=== PATIENT | female | born 1965 ===

== ENCOUNTER 2020-05-31 09:03 | Inpatient (IN) | payer OTHER ==
[2020-05-27 17:38] VITALS: BMI 25.4
[2020-05-31] MEDS ORDERED: LIDOCAINE HCL/PF 2% SDV 5ML VIAL ONE (13:57)
[2020-05-31] MEDS ORDERED: fentaNYL CITRATE 250 MCG/5 ML VIAL ONE ×5 (13:57→18:43)
[2020-05-31] MEDS ORDERED: PROPOFOL 20 ML ONE ×15 (13:58→18:15)
[2020-05-31] MEDS ORDERED: SUCCINYLCHOLINE CHLORIDE 200 MG/10 ML SYRINGE ONE (13:58)
[2020-05-31] MEDS ORDERED: MIDAZOLAM HCL 2 MG/2 ML SINGLE DOSE VIAL ONE ×3 (13:58→15:27)
[2020-05-31] MEDS ORDERED: ceFAZolin SODIUM 1 GM VIAL ONE ×2 (14:00→21:43)
[2020-05-31] MEDS ORDERED: SODIUM CHLORIDE 0.9% P/F 10 ML VIAL IJ ONE (14:00)
[2020-05-31] MEDS ORDERED: DEXAMETHASONE SOD PHOSPHATE 4 MG/1 ML VIAL ONE (14:06)
[2020-05-31] MEDS ORDERED: THROMBIN (BOVINE) 5,000 UNIT VIAL TP ONE (15:21)
[2020-05-31] MEDS ORDERED: BENZOIN/ALOE VERA/STORAX/TOLU 58 ML BOTTLE ONE (15:21)
[2020-05-31] MEDS ORDERED: HEPARIN NA (PORCINE) 5,000 UNITS/ML 1ML VIAL ONE (15:21)
[2020-05-31] MEDS ORDERED: ceFAZolin SODIUM 1 GM VIAL IVPB ONE (16:16)
[2020-05-31] MEDS ORDERED: TRANEXAMIC ACID 1000 MG/10 ML VIAL IVPB ONE (16:16)
[2020-05-31] MEDS ORDERED: VANCOMYCIN 1,000 MG VIAL (RESTRICTED TO ID ONLY) IVPB ONE (16:16)
[2020-05-31] MEDS ORDERED: KETOROLAC TROMETHAMINE 30 MG/1 ML VIAL ONE (16:30)
[2020-05-31] MEDS ORDERED: TRANEXAMIC ACID 1000 MG/10 ML VIAL ONE ×2 (16:31→17:27)
[2020-05-31] MEDS ORDERED: LABETALOL HCL 5 MG/1 ML (100MG/20 ML VIAL) ONE ×3 (17:30→17:33)
--- NOTE | 2020-05-31 19:58 | PN ---
Progress Note (short form) - Note Progress Note: 55F s/p C4-C5, C5-C6 anterior cervical discectomies and instrumented fusion POD #0. -Airway observation: In case of emergency, remove anterior cervical spine dressing, trim single end loop, and pull out running suture; ok to cut suture if needed to decompress hematoma. -Maintain head of bed 30-45 degrees. -Pain medication: per anaesthesia team; oral meds (oxycodone preferred), no CODING TECH; NO NSAID's. -DVT PPx: -Mechanical only: JOSE's, SCD's. -Post-op Ancef x 3 doses. -f/u AM labs. -Incentive spirometry. -PT/OT/Rehab, OOB. -WBAT B/L LE. -PWB B/L UE: 5lbs. -d/c Le catheter in PACU; f/u TOV (8 hours max). -Keep dressing clean & dry. -No heavy lifting (>5 lbs), bending or twisting x 6 months post op. -Start with soft diet; advance diet as tolerated. -B/L UE & LE NV checks. -f/u post-op x-rays tomorrow. -Care per ICU & primary medical hospitalist. -Discharge planning: f/u [facility] [place] office 7-10 days after discharge; call for appointment; . Harvinder Lee MD (Orthopaedic Surgery).
[2020-05-31] MEDS ORDERED: ZOLPIDEM TARTRATE 5 MG TABLET PO PRN (20:02)
--- NOTE | 2020-05-31 20:02 | OP ---
Operative Note - Note: Operative Date: 05/31/20 Pre-Operative Diagnosis: C4-C5, C5-C6 disc prolapses with myeloradiculopathy Operation: C4-C5, C5-C6 ACDF Implants: Cages: RTI Tetrafuse 9mm. Precision Spine Slimplicity Plate: 32mm. 6 x 4x12mm scews Post-Operative Diagnosis: Same as Pre-op Surgeon: Harvinder Lee Forcer Maker: Raymundo Lee Anesthesiologist/STEWARD/STEWARDESS BATH: Jayme Pereira Anesthesia: General Specimens Removed: C4-C5, C5-C6 discs Estimated Blood Loss (mls): 160 Blood Volume Replaced (mls): 70 (Cell saver) Fluid Volume Replaced (mls): 2,000 (Crystalloid) Operative Report Dictated: Yes
[2020-05-31] MEDS ORDERED: ONDANSETRON 4 MG/2 ML VIAL IVPUSH PRN ×2 (20:03→20:22)
[2020-05-31] MEDS ORDERED: oxyCODONE HCL 5 MG TABLET PO PRN (20:03)
[2020-05-31] MEDS ORDERED: LACTATED RINGERS SOLUTION 1,000 ML IV SCH (20:15)
[2020-05-31] MEDS ORDERED: PROMETHAZINE HCL 25 MG/1 ML VIAL IVPUSH PRN (20:22)
[2020-05-31] MEDS ORDERED: HYDROmorphone *PCA* 10MG/50ML DISP.SYRIN PCA SCH (20:30)
[2020-05-31] MEDS ORDERED: HYDROmorphone *PCA* 10MG/50ML DISP.SYRIN ONE (20:54)
[2020-05-31] MEDS: CEFAZOLIN 1 GM in DEXTROSE 5%-WATER - 50 ML IVPB SCH (22:00)
--- NOTE | 2020-05-31 23:37 | CONSULT ---
Consultation: REQUESTING PROVIDER: CONSULT REQUEST: We have been asked to medically evaluate this patient for stability s/p ACDF of C4-C5, C5-C6. HISTORY OF PRESENT ILLNESS: 55 yo F w/ PMHx of chronic neck pain for 3-4 years, intermittent in intensity, with radiation down towards her fingertips. Sensation described as "pulling" and "tingling." Pain was made worse by using the computer and working as a secondary school special ed teacher. Alleviated w/ lidocaine patch. Ptn underwent a scheduled, elective, C4-C5, C5-C6 ACDF, by Dr. Lee, and is currently POD #0. PSH: Tonsillectomy & T-Tubes - 1996 Cholecystectomy - 1991 Breast Augmentation & Abdominoplasty - 2016 SH - Lives with & 2 sons Works as a secondary school special ed teacher FH - Mother - Diabetes Sister - Diabetes Alergies - Tramadol: Causes itchyness Home Meds: Motrin 800mg Tylenol w/ Codeine Ambien REVIEW OF SYSTEMS: CONSTITUTIONAL: Absent: fever, chills, diaphoresis, generalized weakness, malaise, loss of appetite, weight change HEENT: Absent: rhinorrhea, nasal congestion, throat pain, throat swelling, difficulty swallowing, mouth swelling, ear pain, eye pain, visual changes CARDIOVASCULAR: Absent: chest pain, syncope, palpitations, irregular heart rate, lightheadedness, peripheral edema RESPIRATORY: Absent: cough, shortness of breath, dyspnea with exertion, orthopnea, wheezing, stridor, hemoptysis GASTROINTESTINAL: Absent: abdominal pain, abdominal distension, nausea, vomiting, diarrhea, constipation, melena, hematochezia GENITOURINARY: Absent: dysuria, frequency, urgency, hesitancy, hematuria, flank pain, genital pain MUSCULOSKELETAL: Absent: myalgia, arthralgia, joint swelling, back pain, neck pain SKIN: Absent: rash, itching, pallor NEUROLOGIC: Absent: headache, focal weakness or paresthesias, dizziness, unsteady gait, seizure, mental status changes, bladder or bowel incontinence PSYCHIATRIC: Absent: anxiety, depression, suicidal or homicidal ideation, hallucinations. PHYSICAL EXAMINATION Vital Signs - 24 hr 05/31/20 05/31/20 05/31/20 09:33 09:35 20:23 Temperature 97.5 F L 98.9 F Pulse Rate 68 88 Respiratory 20 16 Rate Blood Pressure 149/95 145/93 O2 Sat by Pulse 98 98 96 Oximetry (%) GENERAL: Awake, alert, and fully oriented, in no acute distress. HEAD: Normal with no signs of trauma. EYES: Pupils equal, round and reactive to light, extraocular movements intact, sclera anicteric, conjunctiva clear. No lid lag. EARS, NOSE, THROAT: Ears normal, nares patent, oropharynx clear without exudates. Moist mucous membranes. NECK: Cervical collar in place. LUNGS: Breath sounds equal, clear to auscultation bilaterally. No wheezes, and no crackles. No accessory muscle use. HEART: Regular rate and rhythm, normal S1 and S2 without murmur, rub or gallop. ABDOMEN: Soft, nontender, not distended, normoactive bowel sounds, no guarding, no rebound, no masses. MUSCULOSKELETAL: Normal range of motion at all joints. No bony deformities or tenderness. UPPER EXTREMITIES: 2+ pulses, warm, well-perfused. No cyanosis. No clubbing. No peripheral edema. LOWER EXTREMITIES: 2+ pulses, warm, well-perfused. No calf tenderness. No peripheral edema. NEUROLOGICAL: CN II, III, IV, V, , VII, VIII, IX, XII intact. X and XI not tested. Normal speech. PSYCHIATRIC: Cooperative. Good eye contact. Appropriate mood and affect. SKIN: Warm, dry, normal turgor, no rashes or lesions noted. Laboratory Results - last 24 hr 05/31/20 09:16 Blood Type A POSITIVE Antibody Screen Negative Active Medications Fentanyl (Sublimaze Injection -) 50 mcg IVPUSH [id number] PRN PRN Reason: PAIN-PACU ORDER X 4 DOSES ONLY Hydromorphone HCl (Hydromorphone 10 Mg/50 Ml-Ns) 10 mg AUTOMAT WATCHER AUTOMAT WATCHER RYAN; Protocol Stop: 06/01/20 20:29 Last Admin: 05/31/20 20:50 Dose: 10 mg Documented by: Lactated Ringer's (Lactated Ringers Solution) 1,000 mls @ 125 mls/hr IV ASDIR RYAN Last Admin: 05/31/20 21:11 Dose: 125 mls/hr Documented by: Cefazolin Sodium 1 gm/ (Dextrose) 50 mls @ 100 mls/hr IVPB Q6H [facility] Stop: 06/01/20 21:59 Last Admin: 05/31/20 22:00 Dose: 100 mls/hr Documented by: Ondansetron HCl (Zofran Injection) 4 mg IVPUSH Q6H PRN PRN Reason: NAUSEA AND/OR VOMITING Ondansetron HCl (Zofran Injection) 4 mg IVPUSH Q6H PRN PRN Reason: NAUSEA AND/OR VOMITING Oxycodone HCl (Roxicodone -) 5 mg PO Q4H PRN PRN Reason: PAIN LEVEL 1-5 Oxycodone HCl (Roxicodone -) 10 mg PO Q4H PRN PRN Reason: PAIN LEVEL 6-10 Promethazine HCl (Phenergan Injection -) 12.5 mg IVPUSH Q6H PRN PRN Reason: NAUSEA-FOR RESCUE AFTER 15 MIN Zolpidem Tartrate (Ambien -) 5 mg PO HS PRN PRN Reason: INSOMNIA ASSESSMENT/PLAN: 55F s/p C4-C5, C5-C6 anterior cervical discectomies and instrumented fusion POD #0. NEURO -AAOx3 -Monitor for parasthesias CARDIO -Currently Stable -Monitor HR and BP for any sign of neurologic compromise PULM -Monitor airway - In case of emergency, remove anterior cervical spine dressing, trim single end loop, and pull out running suture; ok to cut suture if needed to decompress hematoma. -Follow O2 Sats, supplemental O2 if needed to maintain above 92% -Incentive Spirometry GI -GI PPx ordered, administer if needed MSK -PT/OT/Rehab, OOB. -Ptn ambulation as per Surgery -FU post op XR tomorrow -f/u [facility] [place] office 7-10 days after discharge; call for appointment; INFECTIOUS -Post Op Ancef x3 -Morning labs ordered -Monitor for signs of fever FEN -Soft Diet, advance as tolerated -Morning labs ordered DVT PPx -SCDs in place Dispo: We will continue to follow the patient. Thank you for this consultative opportunity. Visit type - Emergency Visit Emergency Visit: No - New Patient This patient is new to me today: Yes Date on this admission: 06/01/20 - Critical Care Critical Care patient: Yes Total Critical Care Time (in minutes): 36 Critical Care Statement: The care of this patient involved high complexity decision making to prevent further life threatening deterioration of the patient's condition and/or to evaluate & treat vital organ system(s) failure or risk of failure. ATTENDING PHYSICIAN STATEMENT I saw and evaluated the patient. I reviewed the resident's note and discussed the case with the resident. I agree with the resident's findings and plan as documented. SUBJECTIVE: OBJECTIVE: ASSESSMENT AND PLAN:
[2020-06-01 06:05] LABS: BASO % 0.1 % (0-2.0); HEMATOCRIT 38.8 % (32.4-45.2); LYMPH % 4.2 % (8-40); MCHC 33.4 g/dl (32.0-36.0); MEAN CELL VOLUME 89.8 fl (80-96); MEAN PLT VOLUME 9.3 fl (7.5-11.1); MONO % 0.9 % (3.8-10.2); NEUT % 94.8 % (42.8-82.8); PLATELET COUNT 192 K/MM3 (134-434); RBC 4.32 M/mm3 (3.60-5.2); RDW 12.8 % (11.6-15.6); WHITE BLOOD COUNT 12.3 K/mm3 (4.0-10.0)
[2020-06-01 06:29] LABS: ALBUMIN 3.5 g/dl (3.4-5.0); BILIRUBIN,TOTAL 0.4 mg/dL (0.2-1); BLOOD UREA NITROGEN 8.1 mg/dL (7-18); CREATININE 0.8 mg/dL (0.55-1.3); MAGNESIUM 2.2 mg/dL (1.8-2.4); PHOSPHOROUS 4.4 mg/dL (2.5-4.9); POTASSIUM 4.6 mmol/L (3.5-5.1); TOT PROT 6.5 g/dl (6.4-8.2)
[2020-06-01] MEDS ORDERED: DEXTROSE 5%-WATER - 50 ML IVPB ONE ×3 (06:53→13:41)
[2020-06-01] MEDS ORDERED: ceFAZolin SODIUM 1 GM VIAL ONE ×3 (06:53→13:41)
[2020-06-01] MEDS: CEFAZOLIN 1 GM in DEXTROSE 5%-WATER - 50 ML IVPB SCH ×3 (07:21→15:22)
[2020-06-01 07:37] LABS: INR 0.98 (0.83-1.09); PROTHROMBIN TIME (PATIENT) 11.6 SEC (9.7-13.0)
--- NOTE | 2020-06-01 09:54 | PN ---
Progress Note (short form) - Note Progress Note: Anesthesia Post op/pain Pt seen and examined S:Alert and awake, comfortable O: Vital Signs Temperature 97.5 F L 06/01/20 07:59 Pulse Rate 74 06/01/20 09:30 Respiratory Rate 16 06/01/20 09:30 Blood Pressure 142/79 06/01/20 09:30 O2 Sat by Pulse Oximetry (%) 100 06/01/20 09:30 CBC, BMP 06/01/20 05:15 06/01/20 05:15 A/P s/p C4-5 C5-6 lanminectomy with fusion Doing well post op Continue current care Continue SENIOR PHYSICIAN Jayem Pereira M.D.
[2020-06-01 10:15] LABS: ANISOCYTOSIS 1+; MACROCYTOSIS 0; OVALOCYTE 1+; PLATELET ESTIMATE NORMAL; TEAR DROP CELLS 1+
[2020-06-01 11:03] VITALS: PULSE 68
[2020-06-01] MEDS ORDERED: PCA PUMP NR ONE (13:40)
[2020-06-01] MEDS: oxyCODONE HCL 5 MG TABLET PO PRN ×2 (13:47→15:36)
--- NOTE | 2020-06-01 14:03 | PN ---
Teaching Attending Note Name of Resident: Cassandra Cooper ATTENDING PHYSICIAN STATEMENT I saw and evaluated the patient. I reviewed the resident's note and discussed the case with the resident. I agree with the resident's findings and plan as documented. SUBJECTIVE: Patient seen and examined in the ICU. Awake and alert. Pain is better. No CP or SOB. Intake & Output 05/29/20 05/30/20 05/31/20 06/01/20 23:59 23:59 23:59 23:59 Intake Total 2375 Output Total 1000 Balance 1375 Last Vital Signs Temp Pulse Resp BP Pulse Ox 97.5 F L 68 18 153/78 100 06/01/20 07:59 06/01/20 11:00 06/01/20 11:00 06/01/20 11:00 06/01/20 10:27 Active Medications Fentanyl (Sublimaze Injection -) 50 mcg IVPUSH [id number] PRN PRN Reason: PAIN-PACU ORDER X 4 DOSES ONLY Hydromorphone HCl (Hydromorphone 10 Mg/50 Ml-Ns) 10 mg TELESALES SPECIALIST TELESALES SPECIALIST [facility]; Protocol Stop: 06/01/20 20:29 Last Admin: 05/31/20 20:50 Dose: 10 mg Documented by: Lactated Ringer's (Lactated Ringers Solution) 1,000 mls @ 125 mls/hr IV ASDIR [facility] Last Admin: 05/31/20 21:11 Dose: 125 mls/hr Documented by: Cefazolin Sodium 1 gm/ (Dextrose) 50 mls @ 100 mls/hr IVPB Q6H [facility] Stop: 06/01/20 21:59 Last Admin: 06/01/20 09:07 Dose: 100 mls/hr Documented by: Ondansetron HCl (Zofran Injection) 4 mg IVPUSH Q6H PRN PRN Reason: NAUSEA AND/OR VOMITING Ondansetron HCl (Zofran Injection) 4 mg IVPUSH Q6H PRN PRN Reason: NAUSEA AND/OR VOMITING Oxycodone HCl (Roxicodone -) 5 mg PO Q4H PRN PRN Reason: PAIN LEVEL 1-5 Last Admin: 06/01/20 13:47 Dose: 5 mg Documented by: Oxycodone HCl (Roxicodone -) 10 mg PO Q4H PRN PRN Reason: PAIN LEVEL 6-10 Promethazine HCl (Phenergan Injection -) 12.5 mg IVPUSH Q6H PRN PRN Reason: NAUSEA-FOR RESCUE AFTER 15 MIN Zolpidem Tartrate (Ambien -) 5 mg PO HS PRN PRN Reason: INSOMNIA GENERAL: Awake, alert, and fully oriented, in no acute distress. HEAD: Normal with no signs of trauma. EYES: Pupils equal, round and reactive to light, extraocular movements intact, sclera anicteric, conjunctiva clear. No lid lag. EARS, NOSE, THROAT: Ears normal, nares patent, oropharynx clear without exudates. Moist mucous membranes. NECK: Cervical collar in place. LUNGS: Breath sounds equal, clear to auscultation bilaterally. No wheezes, and no crackles. No accessory muscle use. HEART: Regular rate and rhythm, normal S1 and S2 without murmur, rub or gallop. ABDOMEN: Soft, nontender, not distended, normoactive bowel sounds, no guarding, no rebound, no masses. MUSCULOSKELETAL: Normal range of motion at all joints. No bony deformities or tenderness. UPPER EXTREMITIES: 2+ pulses, warm, well-perfused. No cyanosis. No clubbing. No peripheral edema. LOWER EXTREMITIES: 2+ pulses, warm, well-perfused. No calf tenderness. No peripheral edema. NEUROLOGICAL: Non-focal PSYCHIATRIC: Cooperative. Good eye contact. Appropriate mood and affect. SKIN: Warm, dry, normal turgor, no rashes or lesions noted. Laboratory Results - last 24 hr 06/01/20 06/01/20 06/01/20 05:15 05:15 05:15 WBC 12.3 H RBC 4.32 Hgb 13.0 Hct 38.8 MCV 89.8 MCH 30.0 MCHC 33.4 RDW 12.8 Plt Count 192 MPV 9.3 Absolute Neuts (auto) 11.7 H Neutrophils % 94.8 H Neutrophils % (Manual) 86.0 H Band Neutrophils % 4.0 Lymphocytes % 4.2 L Lymphocytes % (Manual) 9.0 Monocytes % 0.9 L Monocytes % (Manual) 0 L Eosinophils % 0.0 Eosinophils % (Manual) 0.0 Basophils % 0.1 Basophils % (Manual) 0.0 Myelocytes % (Man) 0 Promyelocytes % (Man) 0 Blast Cells % (Manual) 0 Nucleated RBC % 0 Metamyelocytes 0 Hypochromia 0 Platelet Estimate Normal Platelet Comment Present Polychromasia 1+ Poikilocytosis 1+ Anisocytosis 1+ Microcytosis 1+ Macrocytosis 0 Spherocytes 1+ Tear Drop Cells 1+ Ovalocytes 1+ PT with INR 11.60 INR 0.98 Sodium 142 Potassium 4.6 Chloride 107 Carbon Dioxide 25 Anion Gap 10 BUN 8.1 Creatinine 0.8 Est GFR (CKD-EPI)AfAm 97.55 Est GFR (CKD-EPI)NonAf 84.17 Random Glucose 144 H Calcium 9.0 Phosphorus 4.4 Magnesium 2.2 Total Bilirubin 0.4 AST 18 ALT 28 Alkaline Phosphatase 51 Total Protein 6.5 Albumin 3.5 ASSESSMENT/PLAN: POD #1 : S/P C4-C5, C5-C6 anterior cervical discectomies and instrumented fusion Pain control Incentive Spirometry Supplemental O2 as needed VTE prophylaxis PO as tolerated DC planning Dr Senior
[2020-06-01 14:12] VITALS: BP 146/72
--- NOTE | 2020-06-01 14:43 | DS ---
Physical Exam: SUBJECTIVE: Patient seen and examined at bedside. pts pain is controlled with HEALTH CARE RECRUITER pump. pt denies sob, denies CP, palpitations. denies dizziness OBJECTIVE: Vital Signs Period Temp Pulse Resp BP Sys/Kelley Pulse Ox Last 24 Hr 97.5 F-98.9 F 68-96 10-18 124-153/70-93 79-100 PHYSICAL EXAM GENERAL: The patient is awake, alert, and fully oriented, in no acute distress. HEAD: Normal with no signs of trauma. EYES: PERRL, extraocular movements intact, sclera anicteric, conjunctiva clear. ENT: Ears normal, nares patent, oropharynx clear without exudates, moist mucous membranes. NECK: pt wearing cervical collar LUNGS: Breath sounds equal, clear to auscultation bilaterally,no accessory muscle use. HEART: Regular rate and rhythm, S1, S2 without murmur ABDOMEN: Soft, nontender, nondistended, normoactive bowel sounds, no guarding, no rebound EXTREMITIES: 2+ pulses, warm, well-perfused, no edema. NEUROLOGICAL: Cranial nerves II through XII grossly intact. Normal speech PSYCH: Normal mood, normal affect. SKIN: Warm, dry, normal turgor, no rashes or lesions noted. LABS Laboratory Results - last 24 hr 06/01/20 06/01/20 06/01/20 05:15 05:15 05:15 WBC 12.3 H RBC 4.32 Hgb 13.0 Hct 38.8 MCV 89.8 MCH 30.0 MCHC 33.4 RDW 12.8 Plt Count 192 MPV 9.3 Absolute Neuts (auto) 11.7 H Neutrophils % 94.8 H Neutrophils % (Manual) 86.0 H Band Neutrophils % 4.0 Lymphocytes % 4.2 L Lymphocytes % (Manual) 9.0 Monocytes % 0.9 L Monocytes % (Manual) 0 L Eosinophils % 0.0 Eosinophils % (Manual) 0.0 Basophils % 0.1 Basophils % (Manual) 0.0 Myelocytes % (Man) 0 Promyelocytes % (Man) 0 Blast Cells % (Manual) 0 Nucleated RBC % 0 Metamyelocytes 0 Hypochromia 0 Platelet Estimate Normal Platelet Comment Present Polychromasia 1+ Poikilocytosis 1+ Anisocytosis 1+ Microcytosis 1+ Macrocytosis 0 Spherocytes 1+ Tear Drop Cells 1+ Ovalocytes 1+ PT with INR 11.60 INR 0.98 Sodium 142 Potassium 4.6 Chloride 107 Carbon Dioxide 25 Anion Gap 10 BUN 8.1 Creatinine 0.8 Est GFR (CKD-EPI)AfAm 97.55 Est GFR (CKD-EPI)NonAf 84.17 Random Glucose 144 H Calcium 9.0 Phosphorus 4.4 Magnesium 2.2 Total Bilirubin 0.4 AST 18 ALT 28 Alkaline Phosphatase 51 Total Protein 6.5 Albumin 3.5 HOSPITAL COURSE: Date of Admission:05/31/20 55 yo F PMH of chronic neck pain s/p C4-C5, C5-C6 anterior cervical discectomies and instrumented fusion POD #1. pt had no signs of airway or neurologic compromise. vitals remained stable. pt encouraged to use incentive spirometer. pt walked well with PT . pt received ancef x3 dose for surgical ppx. pt will continue PT outpt . pt will f/u with dr. lim in 7-10 days. pt was instructed to avoid nsaids. pt given adequate pain regimen for outpt. Date of Discharge: 06/01/20 Discharge Summary Reason For Visit: CERVICAL DISC DISORDER Current Active Problems Status post laminectomy (Acute) Condition: Good - Instructions Diet, Activity, Other Instructions: You came into the hospital for a procedure of your neck. You were monitored in ICU for any complications. You are now stable for discharge. You are stable to go home and you can continue physical therapy as directed. You may take Percocet as needed for pain in addition to flexeril You may use Tylenol for pain Please do NOT use NSAIDs such as Advil or Naproxen. Please Keep dressing clean & dry. -No heavy lifting (>5 lbs), bending or twisting for 6 months -Dr Lim will be referring you for outpatient physical therapy in 2-3 months. Please follow up with your primary care provider in 1 week to further manage your healthcare Please follow up with your Surgeon, Dr. Lim at [facility] [place] office 7-10 days after discharge; call for appointment; . (appointment for next at Dr Medrano office) Please keep dressing clean and dry If you have new, worsening , or concerning symptoms such as shortness of breath, dizziness, numbess or tingling in your extremities, please return to the ED or call 911 Referrals: Harvinder Lim MD [Staff Physician] - Disposition: HOME - Home Medications Comprehensive Discharge Medication List: Ambulatory Orders Acetaminophen [Tylenol] 650 mg PO PRN PRN 05/27/20 Diclofenac Potassium 100 mg PO PRN PRN 05/27/20 Ibuprofen [Motrin -] 800 mg PO PRN PRN 05/27/20 Multivitamin 1 each PO DAILY 05/27/20 Zolpidem Tartrate [Ambien] 5 mg PO HS 05/27/20 Oxycodone HCl/Acetaminophen [Percocet 5-325 mg Tablet] 1 tab PO Q4H #20 tablet MDD 30mg 06/01/20 ATTENDING PHYSICIAN STATEMENT I saw and evaluated the patient. I reviewed the resident's note and discussed the case with the resident. I agree with the resident's findings and plan as documented. SUBJECTIVE: OBJECTIVE: ASSESSMENT AND PLAN:
[2020-06-01 14:47] VITALS: TEMP 97
--- NOTE | 2020-06-02 08:18 | OP ---
DATE OF OPERATION: 05/31/2020 SURGEON: Harvinder Lee MD SENIOR PACKAGING ENGINEER: Raymundo Lee MD PREOPERATIVE DIAGNOSIS: C4-C5, C5-C6 disk prolapse (osteophyte disk prolapse) with cervical spondylogenic myelopathy and associated C5 and C6 radiculopathy, right side. Progressive kyphotic deformity. POSTOPERATIVE DIAGNOSIS: C4-C5, C5-C6 disk prolapse (osteophyte disk prolapse) with cervical spondylogenic myelopathy and associated C5 and C6 radiculopathy, right side. Progressive kyphotic deformity. OPERATION PERFORMED: 1. C4-C5 Anterior cervical discectomy and arthrodesis with resection of Osteophytes and Posterior Longitudinal Ligament (20697-62) 2. C4-C5 Insertion interbody ACDF cage/biomechanical device C6-C7 (13139). 3. C6-C7 Anterior cervical discectomy and arthrodesis with resection of Osteophytes and Posterior Longitudinal Ligament (30153-52). 4. C6-C7 Insertion interbody ACDF cage/biomechanical device C6-C7 (20054). 5. C4-C7 anterior instrumentation (04147-92; technically challenging). 6. Deformity correction; correction of lordosis (38695). 7. Bone autograft (85109). 8. Bone allograft (48185). 9. Microsurgical dissection (34432). 10. (07095-19) ANESTHESIA: General. ANTIBIOTICS: Preoperative 2 g Kefzol, 1 g vancomycin. Decadron 10 mg preoperative and 10 mg Decadron given intraoperatively (this because of decrease in signals in right hand which then recovered). OPERATION DETAILS: The patient was correctly identified. Imaging was available for intraoperative evaluation. Timeout was called. The patient was placed in the supine position. Baseline neuromonitoring numbers were proceeded with. Thereafter, a bolster was placed behind the scapulae transversely. The neck extended and positioned appropriately, and repeat neuromonitoring values run through. Once this had been performed, prepping and draping was with Betadine scrub solution, wiped off with alcohol, and DuraPrep applied. In the line of Trixie, at the cricothyroid interval, an incision was made, and a small oblique incision in the neck was made. Skin was opened. Subcutaneous tissue dissected down to platysma through investing layer of fascia. This was opened and then split longitudinally cranially and caudally. This gave easy access to the layer called the fuzzies. This enabled the digital dissection to mobilize the soft tissues between the viscera and vessels to the anterior vertebral, prevertebral fascia. The Hohmann retractor was placed under the viscera, that is deep with the lip of the Hohmann under the esophagus and the Cloward retractor, applying tension to the longus colli. A bent, 18-gauge spinal needle was inserted in the C4-C5 disk. Lateral fluoroscopic x-ray taken to confirm the position. Appropriate retractors mediolaterally were inserted. [employer] pins were placed at C4 and C6. A distractor device inserted. Once this had been performed, the longus colli was dissected off the bone of C4, C5, and C6 both left- and right-hand side, this using unipolar Bovie. All hemostasis was achieved. Under the light microscope, the annulus was resected off the endplate of the bone at the 2 levels of the disk. Using a curet, the disks at C4-C5 and C5-C6 were treated in identically the same way with resection of the disk with curets, and the Midas Maycol facilitated complete opening of a rectangle; the lazy C shape of the uncovertebral joint disk complex was noted. The resection of the lips of the disks and endplates brought about complete freeing of the access to the disk. Using a arturo- tipped bur, a rectangle was created right down to the posterior cortex and the osteophytes. These were then resected, combined with the entire posterior longitudinal ligaments, freeing it right down to the thecal sac, and all the soft tissue resected appropriately with the appropriate osteophytes and bone. Both were treated in exactly the same way. No complications achieved. Hemostasis was initiated at the C5-C6 disk because of epidural bleeding. This was with FloSeal as well as Gelfoam and thrombin. After patiently waiting for this to settle down, by the time we inserted the interbody devices, the bleeding had stopped. The interbody cages were then inserted, measuring a size 9 at C4-C5 and size 9 at C5-C6. Each disk was filled with bone, biologic putty prior to insertion of the cages into the interdisk space. Verification of the position of the cages on lateral fluoroscopic x-rays revealed excellent positioning and deformity correction with jain of lordosis. Once we had created this reconstruction, plating of the anterior surfaces of bone was by using an anterior plate measuring 32 mm. This was a Simplicity plate, 6 screws inserted, 9 mm. These were 4 x 12 mm screws. The screws were seated with a jig to enable diversion of the screws into the plate bone which provided a most satisfactory fixation. The screws were locked into position with locking device. The wounds were thoroughly lavaged, hemostasis was achieved, and Valsalva maneuver was performed to ensure that there was no bleeding. The wound was completely dry. Closure of the fascia and subcutaneous tissue with number 2-0 Vicryl, skin 3-0 Monocryl with Steri-Strips. No drains utilized. OVERALL COMMENT: Operation went extremely well with no complications. MD LEMUEL Bell/[id number] MTDD
--- NOTE | 2020-06-02 17:59 | PATH ---
Surgical Pathology Report Patient Name: MARTIN ASIF [facility]. Rec. #: [id number] /Age/Gender: 1965 (Age: 55) / F Account: [id number] Location: ICU FRONT END TECHNICIAN Taken: 05/31/2020 Received: 06/01/2020 Reported: 06/02/2020 Physicians: Harvinder Lee M.D. Specimen(s) Received C4-5, C5-6, DISC Clinical History Cervical disc disorder Final Diagnosis C4-5, C5-6, DISC, ANTERIOR CERVICAL DISCECTOMY, LAMINECTOMY, FUSION: BENIGN INTERVERTEBRAL DISC TISSUE. Electronically Signed Keli Ernst M.D. Gross Description Received in formalin labeled "C4-5, C5-6, disc" are multiple fragments of white-saucedo, fibrocartilaginous tissue measuring 3 x 2 x 1 cm in aggregate. Panel Edge Painter sections are submitted in one cassette.
== END 2020-06-01 16:45 | disposition home or self-care (01) | DRG 472 ==
LOC: J2C 09:03 → JICU 06-01 00:34
PROVIDERS: ADMIT Orthopaedic Surgery Orthopaedic Surgery of the Spine; ATTEND Orthopaedic Surgery Orthopaedic Surgery of the Spine
PROC: 0RB30ZZ Excision of Cervical Vertebral Disc, Open Approach (ICD-10-PCS; 2020-05-31)
PROC: B01BZZZ Fluoroscopy of Spinal Cord (ICD-10-PCS; 2020-05-31)
PROC: 4A1004G Monitoring of Central Nervous Electrical Activity, Intraoperative, Open Approach (ICD-10-PCS; 2020-05-31)
PROC: 0RG20A0 Fusion of 2 or more Cervical Vertebral Joints with Interbody Fusion Device, Anterior Approach, Anterior Column, Open Approach (ICD-10-PCS; principal; 2020-05-31 11:00)
DX: M50.022 Cervical disc disorder at C5-C6 level with myelopathy (principal); M47.12 Other spondylosis with myelopathy, cervical region; M54.12 Radiculopathy, cervical region
CPT/HCPCS: 36415; 76000-TC-FY; 80053; 83735; 84100; 85025; 85610; 86850; 86900; 86901; 88304-TC; 94010; 94760; 97116-GP; 97162-GP; J1644